=== PATIENT | male | born 1960 | race African-American/Black ===

== ENCOUNTER 2017-08-29 23:23 | Inpatient (IN) | payer MEDICARE, MEDICAID ==
[~2017-08-29] VITALS: Ht 182.9 cm; Wt 103.9 kg
[~2017-08-29 23:23] MED LIST: ALFU10TA9 PO; CLOP75TA16 PO; DILT180C93 PO; FOLI-43 PO; FOLI1TAB63 PO; HYDR-4135 PO; INSU100I7 SQ; LEDI1TAB PO; LEVVL SQ; LORA1TAB PO; METO-293 PO; METO25TA6 PO; MINO2.5T2 PO; OXYC-100 PO; PRED5TAB48 PO; PROT40 PO; SIMV40TA5 PO; TACR1CAP19 PO
[2017-08-30] MEDS ORDERED: SODIUM CHLORIDE 0.9% 1,000 ML IV ONE (01:21)
[2017-08-30 08:21] LABS: BASOPHILS % 0.3 % (0.0-2.0); EOSINOPHILS % 1.2 % (0.0-5.0); HEMATOCRIT. 32.5 % (42.0-52.0); MEAN CORPUSCULAR HEMOGLOBIN 30.7 pg (28.0-32.0); MEAN CORPUSCULAR VOLUME 90.7 fL (80.0-94.0); MEAN PLATELET VOLUME 8.5 fl (7.4-10.4); MONOCYTES % 7.7 % (2.0-8.0); NEUTROPHILS % 79.8 % (40.0-76.0); PLATELET 135 x1000/uL (130-400); RED BLOOD CELL COUNT 3.58 mill/uL (4.7-6.1); RED CELL DISTRIBUTION WIDTH 13.2 % (11.6-14.6)
[2017-08-30 09:00] VITALS: BP 180/71
[2017-08-30 09:18] LABS: BG BASE EXCESS -2.6 mmol/L (-2.0-2.0); BG CARBOXYHEMOGLOBIN 0.7 % (0.5-1.5); BG DEOXYHEMOGLOBIN 6.9 % (0.0-5.0); BG FRACTION INSPIRED OXYGEN 21; BG HCO3 ACT 22.2 mmol/L (22.0-26.0); BG METHEMOGLOBIN 0.3 % (0.0-1.5); BG OXYHEMOGLOBIN 92.1 % (94.0-97.0); BG PCO2 38.3 mmHg (35.0-45.0); BG PH 7.381 (7.350-7.450); BG PO2 67.2 mmHg (75.0-100.0); BG SAMPLE SITE LEFT BRACHIAL; BG TOTAL HEMOGLOBIN 11.5 g/dL (12.0-18.0); BG VENT MODE ROOM AIR
[2017-08-30] MEDS ORDERED: CALC0.253 PO (10:17)
[2017-08-30] MEDS ORDERED: DOXE10CA2 PO (10:19)
[2017-08-30] MEDS ORDERED: DOXA2TAB2 PO (10:23)
[2017-08-30 11:55] VITALS: BP 187/80
[2017-08-30 11:58] VITALS: BP 187/80
[2017-08-30] MEDS ORDERED: DIPHENHYDRAMINE 50MG/ML VIAL IV PRN (12:15)
[2017-08-30] MEDS ORDERED: OXYCODONE HCL/ACETAMINOPHEN 5/325MG TABLET PO PRN (12:15)
[2017-08-30] MEDS ORDERED: ONDANSETRON HCL 4MG/2ML VIAL IV PRN (12:15)
[2017-08-30] MEDS ORDERED: IPRATROPIUM/ALBUTEROL 0.5-3(2.5)MG/3ML NEB INH PRN (12:15)
[2017-08-30] MEDS ORDERED: LORAZEPAM 0.5MG TABLET PO PRN (12:15)
[2017-08-30] MEDS ORDERED: DOCUSATE SODIUM 100MG CAPSULE PO PRN (12:15)
[2017-08-30] MEDS ORDERED: GUAIFENESIN 200MG/10ML SUGAR FREE UDC PO PRN (12:15)
[2017-08-30] MEDS ORDERED: ACETAMINOPHEN 325MG TABLET PO PRN (12:15)
[2017-08-30] MEDS ORDERED: CLONIDINE 0.1MG TABLET PO PRN (12:15)
[2017-08-30] MEDS ORDERED: CALCITRIOL 0.25MCG CAPSULE PO SCH (12:30)
[2017-08-30] MEDS ORDERED: DEXTROSE 50% WATER 50ML SYRINGE IV PRN (12:30)
[2017-08-30] MEDS: BLOOD SUGAR DIAGNOSTIC STRIP TEST SCH ×3 (12:35→21:42)
[2017-08-30] MEDS: INSULIN LISPRO 100 UNITS/ML SUBCUT SCH ×3 (14:14→21:41)
[2017-08-30] MEDS: METOCLOPRAMIDE HCL 10MG TABLET PO SCH (14:15)
[2017-08-30] MEDS: PREDNISONE 5MG TABLET PO SCH (14:15)
[2017-08-30] MEDS: DOXAZOSIN MESYLATE 2MG TABLET PO SCH (14:15)
[2017-08-30] MEDS: PANTOPRAZOLE 40MG DR TABLET PO SCH ×2 (14:15→21:38)
[2017-08-30] MEDS: DILTIAZEM HCL 180MG CAPSULE CD 24HR PO SCH (14:15)
[2017-08-30] MEDS: FOLIC ACID 1MG TABLET PO SCH (14:16)
[2017-08-30] MEDS: HYDRALAZINE HCL 100MG TABLET PO SCH ×2 (14:16→21:38)
[2017-08-30] MEDS: CLOPIDOGREL 75MG TABLET PO SCH (14:16)
[2017-08-30] MEDS: TACROLIMUS 1MG CAPSULE PO SCH ×2 (14:16→17:23)
[2017-08-30 14:32] LABS: CARBON DIOXIDE 22 mEq/L (21-32); CHLORIDE 110 mEq/L (98-107); TROPONIN I < 0.02 ng/mL (0.00-0.04)
[2017-08-30 15:00] LABS: BETA HYDROXYBUTYRATE 0.2 mMol/L (0.0-0.3)
[2017-08-30 16:01] VITALS: BP 176/76
[2017-08-30 17:26] LABS: CLARITY URINE CLEAR (CLEAR); COLOR URINE YELLOW (YELLOW); GLUCOSE URINE NEGATIVE (NEGATIVE); KETONES URINE NEGATIVE (NEGATIVE); LEUKOCYTE ESTERASE URINE TRACE (NEGATIVE); NITRITE URINE POSITIVE (NEGATIVE); OCCULT BLOOD URINE NEGATIVE (NEGATIVE); PROTEIN URINE 1+ (NEGATIVE); SPECIFIC GRAVITY URINE 1.014 (1.005-1.030); UROBILINOGEN URINE 0.2 E.U./dL (0.2-1.0)
[2017-08-30 20:00] VITALS: BP 140/63
[2017-08-30] MEDS: METOPROLOL TARTRATE 25MG TABLET PO SCH (21:39)
[2017-08-31] VITALS (7 sets, daily range): BP systolic 113–169; BP diastolic 47–79
[2017-08-31] MEDS: HYDRALAZINE HCL 100MG TABLET PO SCH ×3 (06:26→22:00)
[2017-08-31] MEDS: BLOOD SUGAR DIAGNOSTIC STRIP TEST SCH ×4 (06:47→21:14)
[2017-08-31] MEDS: METOCLOPRAMIDE HCL 10MG TABLET PO SCH (06:54)
[2017-08-31] MEDS: PANTOPRAZOLE 40MG DR TABLET PO SCH ×2 (06:54→22:02)
[2017-08-31] MEDS: ASPIRIN 81MG EC TABLET PO SCH (09:04)
[2017-08-31] MEDS: DILTIAZEM HCL 180MG CAPSULE CD 24HR PO SCH (09:04)
[2017-08-31] MEDS: TACROLIMUS 1MG CAPSULE PO SCH ×2 (09:04→16:19)
[2017-08-31] MEDS: PREDNISONE 5MG TABLET PO SCH (09:05)
[2017-08-31] MEDS: DOXAZOSIN MESYLATE 2MG TABLET PO SCH (09:05)
[2017-08-31] MEDS: METOPROLOL TARTRATE 25MG TABLET PO SCH ×2 (09:05→22:04)
[2017-08-31] MEDS: FOLIC ACID 1MG TABLET PO SCH (09:05)
[2017-08-31] MEDS: CLOPIDOGREL 75MG TABLET PO SCH (09:05)
[2017-08-31] MEDS: INSULIN LISPRO 100 UNITS/ML SUBCUT SCH ×4 (09:09→21:59)
[2017-08-31] MEDS: ENOXAPARIN 30MG/0.3ML SYR SUBCUT SCH ×4 (11:00→23:14)
[2017-08-31 13:25] LABS: BASOPHILS % 0.6 % (0.0-2.0); HEMOGLOBIN. 10.9 g/dL (14.0-18.0); LYMPHOCYTES % 16.5 % (20.0-50.0); MEAN CORPUSCULAR HEMOGLOBIN 30.6 pg (28.0-32.0); MEAN CORPUSCULAR VOLUME 92.6 fL (80.0-94.0); NEUTROPHILS % 73.9 % (40.0-76.0); PLATELET 129 x1000/uL (130-400); RED BLOOD CELL COUNT 3.56 mill/uL (4.7-6.1); RED CELL DISTRIBUTION WIDTH 13.8 % (11.6-14.6)
[2017-08-31] MEDS ORDERED: SODIUM POLYSTYRENE SULFONATE 15 G/60 ML BOT PO NR (14:30)
[2017-08-31] MEDS ORDERED: SODIUM BICARBONATE 50 MEQ in SODIUM CHLORIDE 0.45% 1,000 ML IV NR (16:30)
[2017-09-01] VITALS: BP 167/66
[2017-09-01] MEDS: IPRATROPIUM/ALBUTEROL 0.5-3(2.5)MG/3ML NEB HHN SCH ×3 (00:18→12:36)
[2017-09-01] MEDS: BLOOD SUGAR DIAGNOSTIC STRIP TEST SCH ×2 (06:58→12:55)
[2017-09-01] MEDS: METOCLOPRAMIDE HCL 10MG TABLET PO SCH (07:06)
[2017-09-01] MEDS: PANTOPRAZOLE 40MG DR TABLET PO SCH (07:07)
[2017-09-01] MEDS: HYDRALAZINE HCL 100MG TABLET PO SCH (07:09)
[2017-09-01 08:21] VITALS: BP 126/78
[2017-09-01] MEDS: INSULIN LISPRO 100 UNITS/ML SUBCUT SCH (09:50)
[2017-09-01] MEDS: DOXAZOSIN MESYLATE 2MG TABLET PO SCH (09:52)
[2017-09-01] MEDS: CLOPIDOGREL 75MG TABLET PO SCH (09:52)
[2017-09-01] MEDS: FOLIC ACID 1MG TABLET PO SCH (09:52)
[2017-09-01] MEDS: DILTIAZEM HCL 180MG CAPSULE CD 24HR PO SCH (09:53)
[2017-09-01] MEDS: PREDNISONE 5MG TABLET PO SCH (09:53)
[2017-09-01] MEDS: METOPROLOL TARTRATE 25MG TABLET PO SCH (09:53)
[2017-09-01] MEDS: TACROLIMUS 1MG CAPSULE PO SCH (09:53)
[2017-09-01] MEDS: ASPIRIN 81MG EC TABLET PO SCH (09:54)
[2017-09-01] MEDS: ENOXAPARIN 30MG/0.3ML SYR SUBCUT SCH (11:00)
[2017-09-01 12:31] VITALS: BP 148/79
[2017-09-02] MEDS ORDERED: ENOXAPARIN 40MG/0.4ML SYR SUBCUT SCH (09:00)
== END 2017-09-01 13:05 | disposition home or self-care (01) | DRG 637 ==
LOC: ER 23:23 → 6WST 08-30 02:20 → ENRESERV 08-30 09:03
PROVIDERS: ADMIT Hospitalist; ATTEND Hospitalist
DX: E11.649 Type 2 diabetes mellitus with hypoglycemia without coma (principal); G93.40 Encephalopathy, unspecified; Z94.0 Kidney transplant status; E11.22 Type 2 diabetes mellitus with diabetic chronic kidney disease; E11.51 Type 2 diabetes mellitus with diabetic peripheral angiopathy without gangrene; K31.84 Gastroparesis; B19.20 Unspecified viral hepatitis C without hepatic coma; E11.319 Type 2 diabetes mellitus with unspecified diabetic retinopathy without macular edema; D64.9 Anemia, unspecified; E78.5 Hyperlipidemia, unspecified; I12.9 Hypertensive chronic kidney disease with stage 1 through stage 4 chronic kidney disease, or unspecified chronic kidney disease; I25.10 Atherosclerotic heart disease of native coronary artery without angina pectoris; I73.9 Peripheral vascular disease, unspecified; Z98.41 Cataract extraction status, right eye; N18.3 Chronic kidney disease, stage 3 (moderate); Z79.4 Long term (current) use of insulin; Z85.46 Personal history of malignant neoplasm of prostate; Z86.73 Personal history of transient ischemic attack (TIA), and cerebral infarction without residual deficits; Z89.519 Acquired absence of unspecified leg below knee; Z95.1 Presence of aortocoronary bypass graft; Z99.2 Dependence on renal dialysis
CPT/HCPCS: 36415; 36600; 70450; 71010; 80048; 80053; 80197; 81001; 82010; 82375; 82805; 82962; 83605; 84132; 84443; 84484; 85025; 93005; 94640; 94664; 96374; 96375; 99285; J1650; J1815; J3490; J7030; J7507; J7512; J7620; J8597